=== PATIENT | female | born 1955 | race Caucasian/White ===

== ENCOUNTER 2019-11-07 12:08 | Inpatient (IN) ==
[2019-11-07] MEDS ORDERED: cefOXitin 2,000 MG in Water for inj. (sterile) 20 ML IVP ONE (14:02)
[2019-11-07] MEDS ORDERED: Ringers Solution, Lactated 1,000 ML IVC SCH (14:15)
[2019-11-07] MEDS ORDERED: Albuterol 2.5 MG/3 ML NEBULIZER IH PRN (14:21)
[2019-11-07] MEDS ORDERED: Lidocaine -MPF 2% 2 ML VIAL ONE ×2 (15:11→15:14)
[2019-11-07] MEDS ORDERED: *HR* FentaNYL (PF) 100 MCG/2 ML VIAL ONE (15:12)
[2019-11-07] MEDS ORDERED: Ondansetron 4 MG/2 ML VIAL IVP ONE (15:12)
[2019-11-07] MEDS ORDERED: *HR* Midazolam HCl 2 MG/2 ML VIAL IVP PRN (15:12)
[2019-11-07] MEDS ORDERED: Gabapentin 300 MG CAPSULE PO ONE (15:12)
[2019-11-07] MEDS ORDERED: *HR* Propofol 200 MG/20 ML VIAL IVP ONE (15:12)
[2019-11-07] MEDS ORDERED: *HR* Metoprolol 5 MG/5 ML VIAL IVP PRN (15:12)
[2019-11-07] MEDS ORDERED: *HR* Rocuronium Bromide 50 MG/5 ML VIAL ONE (15:14)
[2019-11-07] MEDS ORDERED: *HR* Succinylcholine 200 MG/10 ML VIAL IVP ONE (15:14)
[2019-11-07] MEDS ORDERED: Dexamethasone 4 MG/ML VIAL ONE (15:14)
[2019-11-07] MEDS ORDERED: Acetaminophen IV 1,000 MG/100 ML INFUS..BTL ONE (17:01)
[2019-11-07] MEDS ORDERED: Neostigmine Methylsulfate 3 MG/3 ML SYRINGE ONE (18:23)
[2019-11-07] MEDS ORDERED: Ondansetron 4 MG/2 ML VIAL ONE (19:09)
[2019-11-07] MEDS ORDERED: Ketorolac 30 MG/ML VIAL ONE (19:10)
[2019-11-07] MEDS ORDERED: *HR* Promethazine 25 MG/ML VIAL IVP PRN (19:38)
[2019-11-07] MEDS: Morphine Sulfate 2 MG/ML SYRINGE IVP PRN ×2 (19:43→20:00)
[2019-11-07] MEDS ORDERED: Naloxone 0.4 MG/ML INJ IVP PRN (21:00)
[2019-11-07] MEDS ORDERED: Ondansetron 4 MG/2 ML VIAL IVP PRN (21:00)
[2019-11-07] MEDS: Ketorolac 15 MG/ML VIAL IVP SCH (23:37)
[2019-11-07] MEDS: 0.9 % Sodium Chloride 1,000 ML IVC SCH (23:37)
[2019-11-08] MEDS: Ketorolac 15 MG/ML VIAL IVP SCH ×3 (05:46→18:58)
[2019-11-08] MEDS: *HR* Heparin 5,000 UNIT/ML VIAL SQ SCH ×2 (05:46→18:58)
[2019-11-08 06:06] LABS: BUN/Creatinine Ratio 22 (6-26); Blood Urea Nitrogen 18 mg/dL (8-23); Calcium 8.2 mg/dL (8.6-10.3); Carbon Dioxide 23 mEq/L (23-29); Chloride 111 mEq/L (98-107); Glucose 132 mg/dL (70-105); Osmolality,Calculated 294 (280-300); Potassium 4.5 mEq/L (3.5-5.1); Sodium 140 mEq/L (136-145); eGFR For African Americans > 60 (> 60); eGFR For Non-African Americans > 60 (> 60)
[2019-11-08] MEDS: 0.9 % Sodium Chloride 1,000 ML IVC SCH (10:05)
[2019-11-08] MEDS: D5% in 0.45% NACL w KCl 20 MEQ/1,000 ML MLS IVC SCH (13:42)
[2019-11-09] MEDS: Ketorolac 15 MG/ML VIAL IVP SCH ×3 (00:09→13:11)
[2019-11-09] MEDS: D5% in 0.45% NACL w KCl 20 MEQ/1,000 ML MLS IVC SCH (01:38)
[2019-11-09] MEDS: *HR* Heparin 5,000 UNIT/ML VIAL SQ SCH (05:38)
[2019-11-09 10:15] VITALS: BP 96/55
[2019-11-09] MEDS ORDERED: FLU Vac QV 19-20 (6Month+)/PF 0.5 ML SYRINGE IM ONE (15:11)
== END 2019-11-09 15:53 | disposition home or self-care (01) | DRG 331 ==
LOC: SAMDAY 12:08 → 3ANU 20:27
PROVIDERS: ADMIT Surgery; ATTEND Surgery